=== PATIENT | female | born 2000 | race Caucasian/White ===

== ENCOUNTER 2022-06-28 16:20 | Emergency (ER) | payer OTHER, SELFPAY ==
[2022-06-28 16:30] VITALS: BP 145/77; PULSE 74; RESP 16; TEMP 37.1; O2SAT 99
--- NOTE | 2022-06-28 16:34 | XRR_ITS ---
PROCEDURE INFORMATION: Exam: XR Right Ankle Exam date and time: 06/28/2022 5:41 PM Age: 21 years old Clinical indication: Injury or trauma; Other: Rolled right ankle; Sprain or strain TECHNIQUE: Imaging protocol: Radiologic exam of the Right ankle. Views: 3 or more views. COMPARISON: No relevant prior studies available. FINDINGS: Bones/joints: Normal. Soft tissues: Normal. XR/XR ankle RT min 3V* [id number] IMPRESSION: No acute findings.
--- NOTE | 2022-06-28 17:09 | W.ED.EXTPRO ---
HPI - Extremity Problem General: Chief complaint: Extremity Injury, Lower Stated complaint: Right ankle injury Time Seen by Provider: 06/28/22 16:58 History of Present Illness: 21-year-old female comes in today for complaints of injury to the right ankle. Patient had twisted her ankle while walking on uneven ground. Patient appears nontoxic. No obvious deformity or swelling is noted to the ankle. Patient has had prior injury to the ankle with frequent sprains. Associated symptoms: Deny chest pain or fever(s) Review of Systems Const: Denies: fever(s) Card: Denies: chest pain Resp: Denies: dyspnea Musc: Reports: joint pain (Right ankle) Physical Exam Const: COMMON NORMALS: alert HENMT: COMMON NORMALS: atraumatic HEAD & SCALP: atraumatic Neck/C-Spine: COMMON NORMALS: full ROM Resp: COMMON NORMALS: normal respiratory effort Cardio: COMMON NORMALS: regular rate RATE: regular rate Extremity: RIGHT LOWER EXTREMITY: Yes foot & digits (Lateral tenderness, minimal swelling) Right ankle: Yes inspection, Yes palpation and Yes ROM (Reduced range of motion due to pain) Neuro: SENSORIUM/ORIENTATION: Yes alert Skin: COMMON NORMALS: no rashes or lesions noted GENERAL SKIN EXAM: no rashes or lesions noted Course Vital Signs: Vital signs: Vital Signs Temperature 98.7 F 06/28/22 16:30 Pulse Rate 74 06/28/22 16:30 Respiratory Rate 16 06/28/22 16:30 Blood Pressure 145/77 06/28/22 16:30 Pulse Oximetry 99 06/28/22 16:30 MDM - Extremity (Nontraumatic) Medical Decision Making 21-year-old female comes in today for injury to the right ankle. On exam patient has some lateral tenderness with minimal to no swelling. Pulses are intact. Cap refill is intact. Differential diagnosis includes fracture, sprain, dislocation. X-ray notes no fracture or dislocation. Reviewed exam with patient with recommendations for follow-up. Patient reported understanding agreed to plan. Lab Data Radiology Impressions Ankle X-Ray 06/28/22 16:34 IMPRESSION: No acute findings. Discharge Plan Discharge Patient Disposition: Home Clinical Impression: Ankle sprain and strain Condition: Stable Discharge Orders: Discharge ED (Routine); Ordered 06/28/22 Ordered By: Goran Vargas Discharge Diet: Usual diet Discharge Activity: Increase activity as tolerated Patient Instructions: Ankle Sprain (ED) Activity Restrictions/Additional Instructions: Increase activity as tolerated, Use crutches until you can bear weight comfortably, Follow-up with primary care in one week for recheck. Return to ED for new concerns. 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
== END 2022-06-28 17:36 | disposition home or self-care (01) ==
PROVIDERS: Emergency Provider Nurse Practitioner Family
DX: S93.401A Sprain of unspecified ligament of right ankle, initial encounter (principal); S96.911A Strain of unspecified muscle and tendon at ankle and foot level, right foot, initial encounter; X50.1XXA Overexertion from prolonged static or awkward postures, initial encounter
CPT/HCPCS: 73610; 99283; E0114